=== PATIENT | male | born 1990 | race Caucasian/White ===

== ENCOUNTER 2017-11-01 22:23 | Emergency (ER) | payer SELFPAY ==
[~2017-11-01] VITALS: Ht 180.3 cm; Wt 86.2 kg
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
[2017-11-01] MEDS ORDERED: IBUPROFEN 600 MG TAB PO ONE (22:55)
[2017-11-01] MEDS ORDERED: DEXAMETHASONE 4 MG TAB PO ONE (22:55)
[2017-11-01] MEDS ORDERED: PROMETHAZINE HCL 25 MG TAB PO ONE (22:55)
--- NOTE | 2017-11-01 23:26 | RADIOLOGY IMAGING REPORT ---
FACILITY: [facility] [place] PATIENT NAME: Francisco Mejia : 1990 MR: [id number] V: [id number] EXAM DATE: ORDERING PHYSICIAN: MARISABEL CROWE TECHNOLOGIST: Location: [facility] Patient: Francisco Mejia : 1990 Visit/Account:[id number] Date of Sevice: 11/01/2017 EXAMINATION: Head CT without intravenous contrast History: Severe headache TECHNIQUE: Contiguous axial images were obtained from the skull base to the vertex without intraven ous contrast. One of the following dose optimization techniques was utilized in the performance of th is exam: Automated exposure control; adjustment of the mA and/or kV according to the patient's size; or use of an iterative reconstruction technique. Specific details can be referenced in the facility 's radiology CT exam operational policy. COMPARISON STUDIES: none FINDINGS: Visualized mastoid air cells / paranasal sinuses: negative Calvarium and scalp: negative White matter: negative Dural venous sinuses / arterial structures: negative Ventricles / sulci / fissures: negative Masses / hemorrhage / midline shift: negative Extra-axial spaces: negative IMPRESSION: Normal head CT. No evidence of a mass, acute ischemia or hemorrhage. Report Dictated By: Parveen Quiñones MD at 11/01/2017 11:21 PM Report E-Signed By: Parveen Quiñones MD at 11/01/2017 11:22 PM WSN:[id number]
[2017-11-01] MEDS ORDERED: PROM-110 PO (23:55)
[2017-11-01] MEDS ORDERED: OXYC-865 PO (23:55)
[2017-11-02] VITALS: BP 123/90
== END 2017-11-02 00:03 | disposition home or self-care (01) ==
LOC: ER 22:26
DX: G43.909 Migraine, unspecified, not intractable, without status migrainosus (principal)
CPT/HCPCS: 70450; 99283; J8540; Q0169